=== PATIENT | male | born 1995 | race African-American/Black ===

== ENCOUNTER 2017-07-09 07:30 | Emergency (ER) | payer OTHER ==
[2017-07-09] MEDS: DIPHTH,PERTUSS(ACELL),TET TOX 0.5 ML DISP.SYRIN. VAX IM (07:59)
[2017-07-09] MEDS: LIDOCAINE 2% 20 ML VIAL. IJ (07:59)
== END 2017-07-09 08:55 | disposition home or self-care (01) ==
LOC: ER 07:30
DX: S60.051A Contusion of right little finger without damage to nail, initial encounter (principal); S60.052A Contusion of left little finger without damage to nail, initial encounter; Z88.8 Allergy status to other drugs, medicaments and biological substances; Z91.013 Allergy to seafood; W23.0XXA Caught, crushed, jammed, or pinched between moving objects, initial encounter; Y93.89 Activity, other specified; Y99.8 Other external cause status; Y92.89 Other specified places as the place of occurrence of the external cause
CPT/HCPCS: 11740; 73140; 90471; 90715; 99284-25

== ENCOUNTER 2018-06-06 06:54 | Emergency (ER) | payer BC, OTHER ==
[~2018-06-06] VITALS: Ht 175.3 cm; Wt 65.3 kg
[~2018-06-06 06:54] MED LIST: HYDR-3164 PO
[2018-06-06 07:05] VITALS: BP 122/62
--- NOTE | 2018-06-06 07:14 | PHYS DOC ---
Past Medical History Past Medical History: Other Additional Past Medical Histor: scar tissue R lung Past Surgical History: Other Additional Past Surgical Histo: R lung surgery as a baby Alcohol Use: None Drug Use: None Adult General Chief Complaint Chief Complaint: COUGH HPI HPI Patient is a 22 year old male who presents with cough and chest congestion. This started yesterday. No fever. No relief with home medication. No nausea or vomiting. Worse with laying down, which causes nasal drainage. No swelling in legs feet or ankles. No recent travel. She is out of his long-term inhaled medication. 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 He has never been intubated for respiratory difficulties.[] Review of Systems Review of Systems Constitutional: Denies fever or chills [] Eyes: Denies change in visual acuity, redness, or eye pain [] HENT: Denies nasal congestion or sore throat [] Respiratory: See history of present illness[] Cardiovascular: No chest pain or palpitations[] GI: Denies abdominal pain, nausea, vomiting, bloody stools or diarrhea [] : Denies dysuria or hematuria [] Musculoskeletal: Denies back pain or joint pain [] Integument: Denies rash or skin lesions [] Neurologic: Denies headache, focal weakness or sensory changes [] Endocrine: Denies polyuria or polydipsia [] All other systems were reviewed and found to be within normal limits, except as documented in this note. Current Medications Current Medications Current Medications Medications (Trade) Dose Ordered Sig/Catherine Start Time Stop Time Status Last Admin Dose Admin Albuterol/ Ipratropium (Duoneb) 3 ml 1X ONCE 06/06/18 07:15 06/06/18 07:16 DC 06/06/18 07:25 3 ML Allergies Allergies Allergies Coded Allergies Type Severity Reaction Last Updated Verified Fish Containing Products Allergy Severe hives and "my throat closes." 07/09/17 Yes citric acid Allergy Severe hives and "my throat closes." 07/09/17 Yes Physical Exam Physical Exam Constitutional: Well developed, well nourished, no acute distress, non-toxic appearance. [] HENT: Normocephalic, atraumatic, bilateral external ears normal, oropharynx moist, no oral exudates, nose normal. [] Eyes: PERRLA, EOMI, conjunctiva normal, no discharge. [] Neck: Normal range of motion, no tenderness, supple, no stridor. [] Cardiovascular:Heart rate regular rhythm, no murmur [] Lungs & Thorax: Bilateral breath sounds clear to auscultation, with decreased airflow [] Abdomen: Bowel sounds normal, soft, no tenderness, no masses, no pulsatile masses. [] Skin: Warm, dry, no erythema, no rash. [] Back: No tenderness, no CVA tenderness. [] Extremities: No tenderness, no cyanosis, no clubbing, ROM intact, no edema. [] Neurologic: Alert and oriented X 3, normal motor function, normal sensory function, no focal deficits noted. [] Psychologic: Affect normal, judgement normal, mood normal. [] Current Patient Data Vital Signs Vital Signs Date Time Temp Pulse Resp B/P (MAP) Pulse Ox O2 Delivery O2 Flow Rate FiO2 06/06/18 07:25 96 Room Air 06/06/18 07:05 98.6 65 20 122/62 (82) 98.6 EKG EKG [] Radiology/Procedures Radiology/Procedures Chest x-ray shows no evidence of an infiltrate, no effusion, no pneumothorax[] Course & Med Decision Making Course & Med Decision Making Pertinent Labs and Imaging studies reviewed. (See chart for details) ED course: Patient arrived, was placed in bed, and tolerated exam well. Received breathing treatment which did improve his breath sounds. Oxygen saturation was still normal. He was transported to and from x-ray with any complications. After return of the imaging findings, these were discussed with the patient who voiced understanding. All questions were answered. Patient was discharged in improved condition. Medical decision making: There is no evidence of hypoxia, pneumonia, pneumothorax, congestive heart failure, nor status asthmaticus.[] Dragon Disclaimer Dragon Disclaimer This electronic medical record was generated, in whole or in part, using a voice recognition dictation system. Departure Departure Impression: Primary Impression: Acute bronchitis Disposition: 01 HOME, SELF-CARE Condition: IMPROVED Referrals: NO PCP (PCP) Patient Instructions: Acute Bronchitis Additional Instructions: Follow-up with your regular doctor in 2 days. If you do not have regular doctor list of local clinics will be provided for you. Take medication as prescribed. Return to the ER if worsening difficulty breathing or any other concerns. Scripts Prednisone (PREDNISONE) 50 Mg Tablet 50 MG PO DAILY for 7 Days, #7 TAB Prov: YOHAN MORTON DO 06/06/18 Albuterol Sulfate (VENTOLIN HFA INHALER) 18 Gm Hfa.aer.ad 2 PUFF INH Q4HRS for FOR ASTHMA, #1 INHALER 0 Refills Prov: YOHAN MORTON DO 06/06/18 Problem Qualifiers Primary Impression: Acute bronchitis Bronchitis organism: unspecified organism Qualified Codes: J20.9 - Acute bronchitis, unspecified YOHAN MORTON DO Jun 06, 2018 07:14
[2018-06-06] MEDS ORDERED: IPRATRPIUM/ALBUTEROL 0.5/2.5MG 3 ML NEBU. NEB ONE (07:15)
[2018-06-06] MEDS ORDERED: PRED50TA PO (07:43)
[2018-06-06] MEDS ORDERED: VENTOLIN HFA18 GM INH (07:43)
--- NOTE | 2018-06-06 07:45 | RAD ---
Chest, 2 views, 06/06/2018: HISTORY: Cough, shortness of breath The heart size and pulmonary vascularity are normal. No pulmonary infiltrate is seen. There is blunting of the right lateral costophrenic angle. The posterior costophrenic angles are sharp. The bony structures are unremarkable. IMPRESSION: 1. Blunting of the right lateral costophrenic angle compatible with scarring versus a small amount of loculated pleural fluid. 2. No acute infiltrates. Electronically signed by: King Ponce MD (06/06/2018 7:42 AM) [facility]
== END 2018-06-06 07:49 | disposition home or self-care (01) ==
LOC: ER 06:54
DX: J20.9 Acute bronchitis, unspecified (principal); Z91.013 Allergy to seafood; Z91.09 Other allergy status, other than to drugs and biological substances
CPT/HCPCS: 71046; 94640; 99283; J7620